=== PATIENT | female | born 1985 | race Hispanic/Latino ===

== ENCOUNTER 2017-08-08 07:31 | Emergency (ER) | payer BC ==
[2017-08-08 08:44] LABS: Urine Blood 3+ (NEG); Urine Glucose NEGATIVE (NEG); Urine Protein NEGATIVE (NEG)
[2017-08-08 08:48] LABS: Absolute Lymphocytes (CBC) 1.7 K/uL (0.7-4.9); Absolute Monocytes 0.5 K/uL (0.1-1.3); Absolute Neutrophil 3.7 K/uL (1.8-8.0); Basophils % 0.7 % (0-1.3); Eosinophils % 0.8 % (0-4.4); Hematocrit 35.6 % (36.0-45.0); Lymphocytes % 28.4 % (15.3-44.8); MCH 23.1 pg (27.0-35.0); MCV 72.9 fL (80-100); MPV 11.4 fL (7.6-11.3); Monocytes % 8.5 % (3.3-12.3); RBC Red Blood Cell Count 4.88 M/uL (3.86-4.86)
[2017-08-08 08:54] LABS: Bicarbonate 26 mEq/L (21-31); Glucose Level 105 mg/dL (65-120); Potassium 3.9 mEq/L (3.6-5.0); Sodium Level 139 mEq/L (135-145)
[2017-08-08 08:55] LABS: BUN Blood Urea Nitrogen 10 mg/dL (6-20); Glomerular Filtration Rate > 90 mL/min (=/>90)
[2017-08-08 09:21] LABS: HCG, Quantitative 5.2 mIU/mL (<5)
--- NOTE | 2017-08-08 10:56 | RAD REPORT ---
EXAM DESCRIPTION: US - Transvaginal OB - 08/08/2017 10:14 am CLINICAL HISTORY: with abdominal pain and vaginal bleeding COMPARISON: None. FINDINGS: The uterus is retroverted and measures 7 x 3 x 4 centimeters. A gestational sac is not vi sualized within the endometrium. A fibroid is not seen. The left ovary is normal in size and echotexture. The right ovary is not seen. A small amount of free fluid is present. IMPRESSION: Nonvisualization of a gestational sac within the endometrium. This may represent an abor tion, early intrauterine in which the gestational sac is not yet visualized or even an ecto pic . This all should be correlated clinically and with serial beta HCG levels. A followup endovaginal sono gram in 1 week would be helpful
--- NOTE | 2017-08-08 11:00 | ER ---
Nurse's Notes [facility] Name: Kaitlin Landin Age: 32 yrs Sex: Female : 1985 Arrival Date: 08/08/2017 Time: 07:38 Bed 19 Private MD: Diagnosis: Less than 8 weeks gestation of Presentation: 08/08 07:40 Presenting complaint: Patient states: LMP-07/14/17; i was bleeding last night, spotty, hj but it was consistent all through out the night, reports pain on the supra pubic area that radiates to both lower back; reports nausea; denies fever and chills; per pt bleeding started post coitus;. Transition of care: patient was not received from another setting of care. Onset of symptoms was August 08, 2017. Care prior to arrival: None. 07:40 Method Of Arrival: Ambulatory 07:40 Acuity: MENDY 3 hj Triage Assessment: 07:44 General: Appears in no apparent distress. uncomfortable, slender, Behavior is hj cooperative, appropriate for age, anxious, crying. Pain: Complains of pain in suprapubic area Pain radiates to left low back and right low back. : Reports vaginal bleeding that is bright red, with clots, spotty. BID CLERK: 07:45 LMP 07/14/2017 07:59 1, 0, Living 0, LMP 07/10/2017 kb Historical: - Allergies: 07:44 No Known Allergies; hj - Home Meds: 07:44 Vitamin Oral tab 1 tab once daily [Active]; hj - PMHx: 07:44 None; hj - PSHx: 07:44 None; hj - Immunization history:: Adult Immunizations up to date. - Social history:: Smoking status: Patient/guardian denies using tobacco. Screenin:24 Abuse screen: Denies threats or abuse. Nutritional screening: No deficits noted. em Tuberculosis screening: No symptoms or risk factors identified. Fall Risk None identified. Assessment: 08:00 General: Appears in no apparent distress. comfortable, Behavior is calm, cooperative, em appropriate for age. General: Reports "having bleeding, is consistent with periods and was supposed to have period on July 31, feels like I'm having period cramps.". Pain: Complains of pain in right lower quadrant Pain currently is 6 out of 10 on a pain scale. Pain began 1 day ago. Neuro: Level of Consciousness is awake, alert, obeys commands, Oriented to person, place, time, situation. Cardiovascular: Capillary refill Patient's skin is warm and dry. Respiratory: Airway is patent Respiratory effort is even, unlabored, Respiratory pattern is regular, symmetrical. GI: Abdomen is flat, Reports mild nausea. : Urine is clear. : Reports vaginal bleeding that is moderate flow, since yesterday night. EENT: No signs and/or symptoms were reported regarding the EENT system. Derm: Skin is intact, Skin is pink, warm \\T\\ dry. Musculoskeletal: Range of motion: intact in all extremities. 08:15 General: The previous assessment is accurate, call light remains within reach. Family ss member at bedside. . 09:00 Reassessment: Patient appears in no apparent distress at this time. Patient and/or em family updated on plan of care and expected duration. Pain level reassessed. Patient is alert, oriented x 3, equal unlabored respirations, skin warm/dry/pink. 09:58 Reassessment: Patient appears in no apparent distress at this time. Patient and/or em family updated on plan of care and expected duration. Pain level reassessed. Patient is alert, oriented x 3, equal unlabored respirations, skin warm/dry/pink. wheeled to US. 10:46 Reassessment: Patient appears in no apparent distress at this time. Patient and/or em family updated on plan of care and expected duration. Pain level reassessed. Patient is alert, oriented x 3, equal unlabored respirations, skin warm/dry/pink. Vital Signs: 07:45 BP 109 / 75; Pulse 68; Resp 18; Temp 98.0(TE); Pulse Ox 100% on R/A; Weight 49.9 kg; hj Height 5 ft. 5 in. (165.10 cm); Pain 8/10; 08:55 BP 117 / 78; Pulse 63; Resp 16; Pulse Ox 99% on R/A; Pain 5/10; em 09:44 BP 115 / 76; Pulse 63; Resp 18; Pulse Ox 100% on R/A; Pain 5/10; em 10:42 BP 114 / 78; Pulse 68; Resp 14; Pulse Ox 99% on R/A; em 07:45 Body Mass Index 18.30 (49.90 kg, 165.10 cm) ED Course: 07:38 Patient arrived in ED. rg4 07:38 Barbra Saldaña FNP-C is [facility]. kb 07:38 Rosalinda Samuel MD is Attending Physician. kb 07:43 Triage completed. hj 07:45 Arm band placed on left wrist. hj 07:55 Carmine Pruitt LVN is Primary Nurse. em 08:10 No provider procedures requiring assistance completed. Initial lab(s) drawn, by me, em sent to lab. Urine collected: clean catch specimen, clear. Inserted saline lock: 20 gauge in right antecubital area, using aseptic technique. Blood collected. 08:24 Patient has correct armband on for positive identification. Placed in gown. Bed in low em position. Call light in reach. Side rails up X2. 10:00 Ultrasound completed. Patient tolerated well. sg3 11:19 IV discontinued, intact, bleeding controlled, No redness/swelling at site. Pressure em dressing applied. Administered Medications: No medications were administered Outcome: 10:59 Discharge ordered by MD. kb 11:19 Discharged to home ambulatory. em 11:19 Condition: good 11:19 Discharge instructions given to patient, Instructed on discharge instructions, follow up and referral plans. Demonstrated understanding of instructions, follow-up care. 11:20 Patient left the ED. em Signatures: Barbra Saldaña FNP-C FNP-Carmine Santana LVN LVN em Yolis Moreno RN RN bb Smirch, Shelby, RN RN ss Joaquin, Henry, RN RN hj Garcia, Rubi rg4 Brittanie Agarwal sg3 Corrections: (The following items were deleted from the chart) 08:58 08:15 Reassessment: The previous assessment is accurate, call light remains within bb reach. Family member at bedside. bb
--- NOTE | 2017-08-08 11:01 | EDPHYS ---
Physician Documentation [facility] Name: Kaitlin Landin Age: 32 yrs Sex: Female : 1985 Arrival Date: 08/08/2017 Time: 07:38 Bed 19 Private MD: ED Physician Rosalinda Samuel HPI: 08/08 07:59 This 32 yrs old Female presents to ER via Ambulatory with complaints of kb Vaginal Bleeding, + Preg <12wks. 07:59 The patient presents to the emergency department with abdominal pain, of the right kb lower quadrant and left lower quadrant, that started last night, described as crampy, vaginal bleeding, that is light. course: care: private OB physician, Dr. Armas, Leakage of Fluid: none appreciated, Ultrasound: the patient has not had an ultrasound, Risk/complications: no obvious risks or complications are appreciated. Previous pregnancies: the patient has never been . Associated signs and symptoms: Pertinent positives: abdominal pain, vaginal bleeding. The patient has not experienced similar symptoms in the past. The patient has been recently seen by a physician: an field services director specialist, in the office, 5 day(s) ago. Pt states "I am a week and a couple of days and started bleeding last night.". 08:04 Pt reports vaginal bleeding and lower abd cramping that is "like a period.". kb IMPORT COORDINATION AND PRODUCTION HEAD: 07:45 LMP 07/14/2017 hj 07:59 1, 0, Living 0, LMP 07/10/2017 kb Historical: - Allergies: 07:44 No Known Allergies; hj - Home Meds: 07:44 Vitamin Oral tab 1 tab once daily [Active]; hj - PMHx: 07:44 None; hj - PSHx: 07:44 None; hj - Immunization history:: Adult Immunizations up to date. - Social history:: Smoking status: Patient/guardian denies using tobacco. ROS: 07:59 Constitutional: Negative for fever, chills, and weight loss, Cardiovascular: Negative kb for chest pain, palpitations, and edema, Respiratory: Negative for shortness of breath, cough, wheezing, and pleuritic chest pain, Back: Negative for injury and pain, MS/Extremity: Negative for injury and deformity, Skin: Negative for injury, rash, and discoloration, Neuro: Negative for headache, weakness, numbness, tingling, and seizure. 07:59 Abdomen/GI: Positive for abdominal cramps. 07:59 : Positive for vaginal bleeding. Exam: 07:59 Constitutional: This is a well developed, well nourished patient who is awake, alert, kb and in no acute distress. Head/Face: Normocephalic, atraumatic. Chest/axilla: Normal chest wall appearance and motion. Nontender with no deformity. No lesions are appreciated. Cardiovascular: Regular rate and rhythm with a normal S1 and S2. No gallops, murmurs, or rubs. Normal PMI, no JVD. No pulse deficits. Respiratory: Lungs have equal breath sounds bilaterally, clear to auscultation and percussion. No rales, rhonchi or wheezes noted. No increased work of breathing, no retractions or nasal flaring. Abdomen/GI: Soft, non-tender, with normal bowel sounds. No distension or tympany. No guarding or rebound. No evidence of tenderness throughout. Back: No spinal tenderness. No costovertebral tenderness. Full range of motion. Skin: Warm, dry with normal turgor. Normal color with no rashes, no lesions, and no evidence of cellulitis. MS/ Extremity: Pulses equal, no cyanosis. Neurovascular intact. Full, normal range of motion. Neuro: Awake and alert, GCS 15, oriented to person, place, time, and situation. Cranial nerves II-XII grossly intact. Motor strength 5/5 in all extremities. Sensory grossly intact. Cerebellar exam normal. Normal gait. Vital Signs: 07:45 BP 109 / 75; Pulse 68; Resp 18; Temp 98.0(TE); Pulse Ox 100% on R/A; Weight 49.9 kg; Height 5 ft. 5 in. (165.10 cm); Pain 8/10; 08:55 BP 117 / 78; Pulse 63; Resp 16; Pulse Ox 99% on R/A; Pain 5/10; em 09:44 BP 115 / 76; Pulse 63; Resp 18; Pulse Ox 100% on R/A; Pain 5/10; em 10:42 BP 114 / 78; Pulse 68; Resp 14; Pulse Ox 99% on R/A; em 07:45 Body Mass Index 18.30 (49.90 kg, 165.10 cm) hj MDM: 07:48 Patient medically screened. kb 07:59 Data reviewed: vital signs, nurses notes. Data interpreted: Pulse oximetry: on room air kb is 100 %. Interpretation: normal. 10:58 Counseling: I had a detailed discussion with the patient and/or guardian regarding: the kb historical points, exam findings, and any diagnostic results supporting the discharge/admit diagnosis, lab results, radiology results, the need for outpatient follow up, an OB/Gyne specialist, to return to the emergency department if symptoms worsen or persist or if there are any questions or concerns that arise at home. ED course: Pt educated on diagnostic findings. Educated to follow up with OB on Thursday for repeat Hcg. Verbal understanding received. Will return for worsening bleeding, abdominal pain or other concerns. . 08/08 07:46 Order name: Quantitative Hcg kb 08/08 07:46 Order name: Abo/rh Typing kb 08/08 07:46 Order name: Basic Metabolic Panel kb 08/08 07:46 Order name: CBC with Diff kb 08/08 08:12 Order name: Urine Dipstick--Ancillary (enter results) ms 08/08 08:12 Order name: Urine --Ancillary (enter results) ms 08/08 08:44 Order name: Urine --Ancillary; Complete Time: 08:46 EDMS 08/08 08:44 Order name: Urine Dipstick-Ancillary; Complete Time: 08:46 EDMS 08/08 08:51 Order name: CBC with Automated Diff; Complete Time: 08:56 EDMS 08/08 08:54 Order name: Basic Metabolic Panel; Complete Time: 09:23 EDMS 08/08 09:04 Order name: ABO/RH typing; Complete Time: 09:07 EDMS 08/08 09:21 Order name: HCG, Quantitative; Complete Time: 09:23 EDMS 08/08 09:24 Order name: US Transvaginal Ob kb 08/08 10:57 Order name: US; Complete Time: 10:57 EDMS 08/08 07:46 Order name: Urine Test (obtain specimen); Complete Time: 08:06 kb 08/08 07:46 Order name: IV Saline Lock; Complete Time: 08:15 kb 08/08 07:46 Order name: Labs collected and sent; Complete Time: 08:15 kb 08/08 07:46 Order name: NPO; Complete Time: 07:48 kb 08/08 07:46 Order name: Urine Dipstick-Ancillary (obtain specimen); Complete Time: 08:06 kb Administered Medications: No medications were administered Disposition: 18:44 Co-signature as Attending Physician, Rosalinda Samuel MD. ma2 Disposition: 08/08/17 10:59 Discharged to Home. Impression: Less than 8 weeks gestation of . - Condition is Stable. - Discharge Instructions: First Trimester of , [id number]. - Medication Reconciliation Form, Thank You Letter, Antibiotic Education, Prescription Opioid Use, Work release form form. - Follow up: Emergency Department; When: As needed; Reason: Worsening of condition. Follow up: Private Physician; When: 2 - 3 days; Reason: Recheck today's complaints, Continuance of care, Re-evaluation by your physician. - Notes: Have repeat Quantitative Hcg done in 48 hours Signatures: Dispatcher [employer] Barbra Bee, CHRIS HOME APPLIANCE TECHNICIAN-Carmine Santana, PUMP TENDER PUMP TENDER Ja Rhodes, RN Rosalinda Land MD MD ma2
== END 2017-08-08 11:20 | disposition home or self-care (01) ==
LOC: ER 07:31
DX: R10.9 Unspecified abdominal pain (principal); Z3A.01 Less than 8 weeks gestation of pregnancy
CPT/HCPCS: 36415; 76817; 80048; 81003; 81025; 84702; 85025; 86900; 86901; 99283